=== PATIENT | male | born 1985 | race Caucasian/White ===

== ENCOUNTER 2019-01-25 14:27 | Emergency (ER) | payer SELFPAY ==
[~2019-01-25] VITALS: Ht 170.2 cm; Wt 74.3 kg
--- NOTE | 2019-01-25 15:15 | NUR ---
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 Risks versus benefits discussed, patient verbalizes understanding.
--- NOTE | 2019-01-25 15:36 | NUR ---
PT TO ED FOR EGIPASTRIC BURNING AND TIGHTNESS AND ASSOCIATED SWEATING NAD NAUSEA WHILE SITTING FOR LUNCH TODAY. PT STATES PAIN 3/10 DURING EVENT. UPON ARRIVAL TO ED, ALL S/S AND PAIN HAVE STOPPED. PT CONNECTED TO ALL MONITORS. HTN 172/100, ALL OTHER VSS ON RA. PIT ORDERS RECEVIED. LABS DRAWN. PT DECLINED CXR TODAY. AWAITING RESULTS. TO BS FOR ASSESSMENT. AWAITING FURTHER ORDERS.
[2019-01-25 15:39] VITALS: BP 187/103
[2019-01-25 15:58] LABS: ALBUMIN 4.3 g/dL (3.4-5.0); ANION GAP 7 mmol/L (5-15); CALCIUM 9.1 mg/dL (8.5-10.1); CHLORIDE 105 mmol/L (98-107); CREATININE 0.98 mg/dL (0.7-1.3)
[2019-01-25 16:01] LABS: BASOPHILS # (AUTO) 0.03 x10^3/uL (0-0.1); BASOPHILS % (AUTO) 0 % (0-1); EOSINOPHILS # (AUTO) 0.09 x10^3/uL (0-0.4); EOSINOPHILS % (AUTO) 1 % (1-7); LYMPHOCYTES # (AUTO) 1.45 x10^3/uL (1-3.4); LYMPHOCYTES % (AUTO) 17 % (22-44); MD NO; MEAN CORPUSCULAR HEMOGLOBIN 33.7 pg (27.5-34.5); MEAN CORPUSCULAR HGB CONC 34.4 g/dL (33.2-36.2); MEAN CORPUSCULAR VOLUME 97.9 fL (81-97); MEAN PLATELET VOLUME 8.5 fL (7.4-10.4); MONOCYTES # (AUTO) 0.53 x10^3/uL (0.2-0.8); MONOCYTES % (AUTO) 6 % (2-9); NEUTROPHILS # (AUTO) 6.28 x10^3/uL (1.8-6.8); NEUTROPHILS % (AUTO) 75 % (42-75); PLATELET COUNT 251 x10^3/uL (130-400); RED BLOOD COUNT 4.66 x10^6/uL (4.38-5.82); RED CELL DISTRIBUTION WIDTH 12.5 % (9.4-14.8); TROPONIN I < 0.015 ng/mL (0.000-0.045)
--- NOTE | 2019-01-25 16:31 | NUR ---
Patient given discharge instructions and they have confirmed that they understand the instructions. Patient ambulatory with steady gait.
== END 2019-01-25 16:33 | disposition home or self-care (01) ==
LOC: ED 16:28
DX: R07.89 Other chest pain (principal); F17.200 Nicotine dependence, unspecified, uncomplicated
CPT/HCPCS: 36415; 71045; 80048; 82040; 84484; 85025; 93005; 99284